=== PATIENT | male | born 1990 | race Caucasian/White ===

== ENCOUNTER 2023-07-11 13:29 | Emergency (ER) | payer OTHER, SELFPAY ==
[2023-07-11 13:45] VITALS: BP 112/79
[2023-07-11 14:07] LABS: Hematocrit 42.1 % (39.0-52.0); Hemoglobin 15.1 g/dL (13.0-18.0); Mean Corp Hgb Conc. 35.9 g/dL (33.0-37.0); Mean Corpuscular Hgb 31.2 pg (27.0-31.0); Mean Platelet Volume 8.3 fL (7.4-10.4); Nucleated Red Blood Cells % 0 % (-); Platelet Count 261 10^3/uL (130-400); Red Blood Cell Count 4.84 10^6/uL (4.70-6.10); Red Cell Dist. Width 11.9 % (11.5-14.5); White Blood Cell Count 4.7 10^3/uL (4.8-10.8)
[2023-07-11 14:20] LABS: ALT (SGPT) 34 U/L (0-50); AST (SGOT) 29 U/L (17-59); Albumin 4.3 g/dl (3.5-5.0); Alkaline Phosphatase 81 U/L (38-126); Blood Urea Nitrogen 14 mg/dl (9-20); Carbon Dioxide 31 mmol/L (22-30); Chloride 102 mmol/L (98-107); Glucose 86 mg/dl (70-99); Potassium 4.1 mmol/L (3.5-5.1); Sodium 137 mmol/L (135-145); Total Bilirubin 0.6 mg/dl (0.2-1.3); Total Protein 7.4 g/dl (6.3-8.2); eGFR > 60.00
[2023-07-11 14:25] LABS: COVID-19 Antigen Negative (Negative)
[2023-07-11 14:54] LABS: Absolute Neutrophils -Man Diff 1.8 10^3/uL (1.4-6.5); Atypical Lymphocytes 5 %; Band Neutrophils 2 % (0-3); Eosinophils 2 % (0-6); Lymphocytes 40 % (20-51); Monocytes 13 % (2-9); Normal RBC Morphology Yes; Platelets Checked YES; Segmented Neutrophils 38 % (42-75); Total Cells Counted 100
--- NOTE | 2023-07-11 16:17 | ED.GENMED ---
History of Present Illness
General
Chief Complaint: Fever
Source: patient
Exam Limitations: none
Time Seen by Provider: 07/11/23 16:10
Travel History
Have you had any contact with someone who has COVID-19?: No
Do you have any symptoms of coronavirus? Fever > 100 degrees, chills, cough, shortness of breath, sore throat, loss of taste or smell, muscle aches, or headache?: Yes
Symptoms:: cough and fever
History of Present Illness
History of Present Illness:
See MDM
Past History
Past History
ED Past Medical History: Other (crohns', prostatitis)
ED Past Surgical History: Other (colonoscopy)
Social History
Tobacco: Non-smoker
Alcohol: None
Drug: None
Personal: Single
Living: alone
Employment: Other
Family History
Family History: Other
Phy Exam
Physical Exam
Physical Exam:
See MDM
Course
Orders/Labs/Results
Orders:
Orders
07/11/23 13:55
COVID-19 Antigen Urgent
Source: Nasal Swab
Complete Blood Count/With Diff Urgent
Comprehensive Metabolic Panel Urgent
Manual Differential Urgent
Influenza A+B Rapid Molecular Urgent
EUNICE Source: Nasal Swab
Specimen Description:
07/11/23 16:17
Dexamethasone Pf [Decadron] 10 mg PO NOW STA
Abnormal Lab Results
07/11/23
13:55
WBC 4.7 L 10^3/uL
(4.8-10.8)
MCH 31.2 H pg
(27.0-31.0)
Segmented Neutrophils 38 L %
(42-75)
Monocytes (Manual) 13 H %
(2-9)
Carbon Dioxide 31 H mmol/L
(22-30)
07/11/23 13:55
07/11/23 13:55
Vital Signs
Initial and Last Documented VS:
Initial Vital Signs
Temp Pulse Resp BP Pulse Ox
98.2 F 89 18 112/79 98
07/11/23 13:45 07/11/23 13:45 07/11/23 13:45 07/11/23 13:45 07/11/23 13:45
Last Documented Vital Signs
Temp Pulse Resp BP Pulse Ox
98.2 F 89 18 112/79 98
07/11/23 13:45 07/11/23 13:45 07/11/23 13:45 07/11/23 13:45 07/11/23 13:45
MDM/Problems Addressed
Differential Diagnosis Includes:
HPI and MDM Narrative:
32-year-old male presenting with fever, cough and congestion. Patient was worried because he had recent umbilical hernia repair. He believes he could have the flu since his girlfriend was recently diagnosed with the flu. Patient also complains of
trouble hearing out of his left ear
Patient is well-appearing nontoxic. Lungs are clear. Umbilical incision clean and intact. No abdominal tenderness. Left TM bulging but pale
Physical exam
General: Well appearing and non-toxic
HEENT: protecting airway
Neck: appears supple
CV: No evidence of cyanosis
Resp: No accessory muscle use. Lungs clear
Abd: Non-distended. Soft and nontender
Extremities: No deformities
Neuro: alert
Psych: Normal affect
Skin: Intact
Problems Addressed including Acute and Chronic Conditions affecting care:
1. Influenza
Acuity: acute
Prognosis: stable
Details: Patient out of the Tamiflu window. Will give dose of Decadron given the congestion. Lungs clear
Updates
Differential Diagnosis (but not limited to): Influenza, postsurgical infection
Testing considered: Chest x-ray but lungs clear
Drug therapy (if applicable): OTC meds, please see d/c instruction regarding Rx drugs
Amount and/or Complexity of Data Reviewed
Clinical info obtained from: Patient
External data reviewed: N/A
Labs I independently reviewed (but not limited to): Influenza positive
Radiology: N/A
Pulse Ox: not hypoxic
EKG independently reviewed: N/A
Accounting Specialist: N/A
Critical Care: N/A
Risk of Complication:
Social Determinants of health: Good social support
Discussed with other providers: N/A
Escalation of Care includes Admit/Obs: After being observed in the Emergency Department, pt stable for discharge.
Occasional wrong word or 'sound a like' substitutions may have occurred due to the inherent limitations of voice recognition software. Read the chart carefully and recognize, using context, where substitutions have occurred.
*Critical Care Note
Total Time (30-74mins, 75-104mins- exclusive of procedures): Not Applicable
ED Attending Note
-
Portions of this chart may have been created with voice recognition software.� Occasional wrong word or��sound alike� substitutions may have occurred due to the inherent limitations of voice recognition software.
Discharge Plan
Departure
Patient Disposition: Home (Routine Discharge)
Date of Disposition: 07/11/23
Time of Disposition: 16:25
Patient with high blood pressure during this ER visit?: No
Discharge Problem:
Influenza A
Instructions: Flu, Adult ED
Prescriptions:
No Action
oxycodone 5 mg tablet
5 - 10 mg PO Q4HPRN PRN (Reason: moderate to severe pain) Qty: 20 0RF
Activity Restrictions/Additional Instructions:
Please return for any worsening symptoms.
You may return at any time if you have further concerns.
Please follow up with your doctor at the first available appointment, preferably this week.
Thank you for choosing [facility].
[2023-07-11] MEDS: DECADRON 10 MG PO (16:26)
[2023-07-11 16:42] VITALS: BP 124/76
== END 2023-07-11 16:40 | disposition home or self-care (01) ==
LOC: EMR 13:29
PROVIDERS: Emergency Medicine; EMERGENCY PHYSICIAN Student in an Organized Health Care Education/Training Program
DX: J10.1 Influenza due to other identified influenza virus with other respiratory manifestations (principal); K50.90 Crohn's disease, unspecified, without complications
CPT/HCPCS: 99283; 80053; 85025; 87502; 87811

== ENCOUNTER 2023-08-06 21:45 | Emergency (ER) | payer OTHER, SELFPAY ==
[2023-08-06 21:49] VITALS: BP 123/89
[2023-08-06 22:16] LABS: % Basophils 0.3 % (0-2); % Immature Granulocytes 0.6 % (0-0.5); % Lymphocytes 41.8 % (20.5-51.1); % Monocytes 10.2 % (1.7-9.3); % Neutrophils 44.1 % (42.2-75.2); Absolute Eosinophils 0.2 10^3/uL (0-0.7); Absolute Monocytes 0.7 10^3/uL (0.1-0.6); Absolute Neutrophils 3.1 10^3/uL (1.4-6.5); Hematocrit 44.5 % (39.0-52.0); Hemoglobin 15.8 g/dL (13.0-18.0); Mean Corp Hgb Conc. 35.5 g/dL (33.0-37.0); Mean Corpuscular Hgb 30.9 pg (27.0-31.0); Mean Corpuscular Volume 86.9 fL (80.0-94.0); Mean Platelet Volume 8.2 fL (7.4-10.4); Nucleated Red Blood Cells % 0 % (-); Platelet Count 273 10^3/uL (130-400); Red Blood Cell Count 5.12 10^6/uL (4.70-6.10); Red Cell Dist. Width 12.3 % (11.5-14.5); White Blood Cell Count 7.1 10^3/uL (4.8-10.8)
[2023-08-06 22:21] LABS: Erythrocyte Sed Rate 2 mm/hour (0-20)
[2023-08-06 22:36] LABS: ALT (SGPT) 26 U/L (0-50); AST (SGOT) 24 U/L (17-59); Albumin 3.9 g/dl (3.5-5.0); Alkaline Phosphatase 79 U/L (38-126); Blood Urea Nitrogen 19 mg/dl (9-20); Calcium 9.6 mg/dl (8.4-10.2); Carbon Dioxide 33 mmol/L (22-30); Chloride 99 mmol/L (98-107); Glucose 96 mg/dl (70-99); Sodium 138 mmol/L (135-145); Total Bilirubin 0.7 mg/dl (0.2-1.3); eGFR > 60.00
[2023-08-06 22:37] LABS: Total Protein 7.1 g/dl (6.3-8.2)
[2023-08-06 22:41] LABS: Troponin I < 0.012 ng/ml
[2023-08-06 23:57] VITALS: BP 117/82
--- NOTE | 2023-08-07 01:07 | ED.GENMED ---
History of Present Illness
General
Chief Complaint: Musculo-Skeletal Complaint
Source: patient
Exam Limitations: none
Time Seen by Provider: 08/07/23 00:29
Travel History
Have you had any contact with someone who has COVID-19?: No
Do you have any symptoms of coronavirus? Fever > 100 degrees, chills, cough, shortness of breath, sore throat, loss of taste or smell, muscle aches, or headache?: No
History of Present Illness
History of Present Illness:
This is a 32 year old male that comes in with c/o difficulty walking. States that this started 3 weeks ago as his legs felt shaky. States that his left foot seemed to be ice cold, burning and numb. Then he felt like his thighs felt like Jell-O. Then
in 3-4 days it was in both feet. States that he went to see the PCP about 5 days ago and he did blood work. States that his iron level was high. States that he was told to get Genetic testing and see the Electro Mechanical Solar Technician which he did make appointment
for. States that he has chest pain and left arm pain. States that he felt SOB and nauseated. States that he was dizzy going up the steps. States that for the past week he has been in bed. Denies any fever, chills, abd pain, vomiting, headache,
urinary burning
Past History
Past History
ED Past Medical History: Hypercholesterolemia and Other (crohns', prostatitis)
ED Past Surgical History: Other (colonoscopy, Hernia, Sinus Reconstruction, )
Social History
Tobacco: Non-smoker
Alcohol: None
Drug: None
Personal: Single
Living: alone
Employment: Other
Family History
Family History: Other
Review of Systems
Review of Systems
All Other Systems: ROS reviewed and negative except as documented in HPI and ROS
Constitutional: Reports no symptoms; Denies fever or chills
EENT: Reports no symptoms
Respiratory: Reports trouble breathing; Denies cough
Cardiac: Reports chest pain
ABD/GI: Reports nausea and diarrhea (on and off due to his Crohns); Denies abdominal pain or vomiting
: Reports no symptoms; Denies dysuria, frequency or urgency
Musculoskeletal: Reports other (Bilateral leg pain, Difficulty walking, Burning and feet feel numb)
Skin: Reports no symptoms
Neurological: Reports dizzy; Denies headache
Psychiatric: Reports no symptoms
Phy Exam
General Physical Exam
General Presentation: well appearing and no apparent distress
General age: appears stated age
General Skin: warm and dry
General Habitus: normal
General Hydration: appears well hydrated
ENT Exam
ENT Exam: TM's normal, pharynx normal and neck supple
Eye Exam
Eye Exam: EOMI
Cardiovascular Exam
Cardiovascular Exam: regular rate/rhythm, no edema, no murmur and normal peripheral pulses
Pulmonary Exam
Pulmonary Exam: lungs clear, no respiratory distress, no rales, chest non tender, no crackles, no rhonchi, no wheezing and no cough
Gastrointestinal Exam
Gastrointestinal Exam: normal bowel sounds, non tender, soft, no organomegaly, no pulsatile mass and non distended
Musculoskeletal Exam
Musculoskeletal Exam: full ROM, no edema and other (Peripheral pulses palpable. Feet cool to tough. Slight Decreased sensation on the medial aspect of the left distal foot)
Skin Exam
Skin Exam: normal color, warm/dry, no rash and no petechia
Psychiatric Exam
Psychiatric Exam: normal mood/affect
Course
Orders/Labs/Results
Orders:
Orders
08/06/23 21:55
Electrocardiogram (*1) Urgent
Reason for Study: Chest Pain
EKG- Treatment ONCE
08/06/23 22:10
C-Reactive Protein Urgent
Complete Blood Count/With Diff Urgent
Comprehensive Metabolic Panel Urgent
ESR [Erythrocyte Sed Rate] Urgent
Troponin I Urgent
08/07/23 01:06
CT Head W/o Iv Contrast Urgent
Comment:
Reason For Exam: Difficulty walking, Dizziness
US Legs, Bilateral [US Periph Venous LOWER Ext Jose] Urgent
Comment:
Reason For Exam: Difficulty walking Burning in feet, Numbness,
08/07/23 01:10
Electrocardiogram (*1) Urgent
Reason for Study: Chest Pain
EKG- Treatment ONCE
Troponin I Urgent
CR Chest - 2 Views Urgent
Comment:
Reason For Exam: chest pain, SOB
Abnormal Lab Results
08/06/23
22:10
Absolute Monos (auto) 0.7 H 10^3/uL
(0.1-0.6)
Immature Gran % 0.6 H %
(0-0.5)
Monocytes % 10.2 H %
(1.7-9.3)
Carbon Dioxide 33 H mmol/L
(22-30)
08/06/23 22:10
08/06/23 22:10
Carbon dioxide slightly elevated. Sed rate normal at 2, Troponin <0.012, CRP normal at 7.10
Vital Signs
Initial and Last Documented VS:
Initial Vital Signs
Temp Pulse Resp BP Pulse Ox
97.9 F 74 18 123/89 97
08/06/23 21:49 08/06/23 21:49 08/06/23 21:49 08/06/23 21:49 08/06/23 21:49
Last Documented Vital Signs
Temp Pulse Resp BP Pulse Ox
97.9 F 83 18 117/82 98
08/06/23 21:49 08/07/23 00:45 08/07/23 00:45 08/06/23 23:57 08/07/23 00:45
Twister Hand consulted with Physician
Twister Hand consulted with physician?: Yes
Name of Physician Consulted: DR. Fajardo
MDM/Problems Addressed
Differential Diagnosis Includes:
Neuropathy, Guillain barre syndrome,
MDM/Problems Addressed:
This is a 32 year old male that comes in with multiple complaints. States that he has had pain in the legs for the past 3 weeks. States that he feel are like his feet are ice cold and that there is burning and numbness. Patient states that he has
been in bed for the past week. States that he had chest discomfort, SOB going up the steps. nausea, and dizziness.
Will check labs. CT head, US legs.
Back into see patient. Explained that his blood work is normal along with his ECG. CT of the head and his Bilateral leg ultrasound. Patient to follow up with the family doctor and other specialist as planned. Patient will be given the name of a
Vascular surgeon for further evaluation. Patient to return with any concerns
Chronic conditions affecting care:
NA
Acute Exacerbation and/or Progression of Chronic Illness:
NA
*Radiology
Radiology exam reviewed: radiology read reviewed (CT head night hawk- No acute hemorrhage, herniation or hydrocephalus. NO calvarial fractures. The visualized paranasal sinuses and mastoid air cells are clear. ) and other (Verbal report Ultrasound
negative. )
*Pulse Oximetry
Patient hypoxic: no
*EKG
Interpreted by ED Provider?: Yes
Heart Rate: 63
Rate: normal
Rhythm: sinus
[place]: normal axis
Interval: normal interval
QRS Pattern: normal QRS
Ischemia: no ischemia
*Records Management Engineer Interpretation
Rate: normal
Heart Rate: 82
Rhythm: sinus
*Critical Care Note
Total Time (30-74mins, 75-104mins- exclusive of procedures): Not Applicable
ED Attending Note
-
Portions of this chart may have been created with voice recognition software.� Occasional wrong word or��sound alike� substitutions may have occurred due to the inherent limitations of voice recognition software.
Discharge Plan
Departure
Patient Disposition: Home (Routine Discharge)
Date of Disposition: 08/07/23
Time of Disposition: 02:47
Patient with high blood pressure during this ER visit?: No
Condition: Good
Covid-19: Not Applicable
Discharge Problem:
Bilateral foot pain, Dizziness
Instructions: Muscle and Bone Pain (DC), Dizziness, Adult ED
Prescriptions:
No Action
oxycodone 5 mg tablet
5 - 10 mg PO Q4HPRN PRN (Reason: moderate to severe pain) Qty: 20 0RF
Referrals:
Amari Menjivar MD [Active] - Call in 1-3 days for appt
Carly Pelaez PA [Family Provider] - Call in 1-3 days for appt
Activity Restrictions/Additional Instructions:
As discussed, your blood work is normal along with your Inflammatory markers. Your CT of the head is normal along with the Ultrasound. Please follow up with the family doctor for recheck and also the specialist that you have scheduled appointment
with. You have also been given the name of a Vascular surgeon for evaluation if your numbness and pain continues. You may use Tylenol 1000mg every 6 hours for pain. IF YOU HAVE ANY OTHER CONCERNS PLEASE RETURN TO THE EMERGENCY ROOM.
Interventions
Interventions:
*Risk Screen - Suicide Last Done: 08/06/23 21:49
*General Assessment Last Done: 08/06/23 21:49
*Neglect/Abuse Screening Last Done: 08/06/23 21:49
[2023-08-07 03:06] VITALS: BP 123/63
== END 2023-08-07 03:13 | disposition home or self-care (01) ==
LOC: EMR 21:45
PROVIDERS: EMERGENCY PHYSICIAN Emergency Medicine; FAMILY PHYSICIAN Family Medicine
DX: M79.672 Pain in left foot (principal); M79.671 Pain in right foot; R42 Dizziness and giddiness; E78.00 Pure hypercholesterolemia, unspecified; K50.90 Crohn's disease, unspecified, without complications
CPT/HCPCS: 99284; 70450; 71046; 80053; 84484; 85025; 85652; 86140; 93005; 93970

== ENCOUNTER 2024-01-18 08:11 | Emergency (ER) | payer SELFPAY ==
[2024-01-18 08:14] VITALS: BP 121/90
--- NOTE | 2024-01-18 08:17 | ED.GENMED ---
History of Present Illness
General
Chief Complaint: Abdominal Pain
Time Seen by Provider: 01/18/24 08:17
History of Present Illness
History of Present Illness:
HPI: Patient presents with abdominal pain associated with diarrhea and has a history of Crohn's disease. He reports chronic pain but over the last few weeks he has been having increasing pain to the point that today he was breaking out into a sweat
because of the pain. He had been on steroids for about 12 weeks but this did not help. He also reports a history of having issues with his prostate and was frustrated because urology defers management to GI and vice versa. Symptoms are associated
with diarrhea. He also reports pain in the right low back region.
EXAM:
GENERAL: Well appearing in no distress
HEENT: Moist oral mucosa
CARDIOVASCULAR: No murmurs, normal heart rate, regular rhythm, No chest wall tenderness
PULMONARY: No respiratory distress, breath sounds are clear and equal
ABDOMEN: Soft with no peritoneal signs, mild lower abdominal tenderness
NEUROLOGIC: Excellent strength all extremities, no coordination deficits
PSYCHIATRIC: Appropriate mental status, normal insight and judgement
EXTREMITIES: Nontender, no edema, moves all extremities equally
SKIN: No rash, no lesions
TIME OF INITIAL ENCOUNTER: 8:20 AM
NUMBER AND COMPLEXITY OF PROBLEMS ADDRESSED AT THE ENCOUNTER
� Chronic conditions affecting care: Crohn's, has had an umbilical hernia repair
� Acute Exacerbation and/or Progression of Chronic Illness: This is an acute exacerbation of chronic
� Differential Diagnosis includes: Exacerbation of Crohn's, bowel obstruction less likely given the diarrhea,
AMOUNT AND/OR COMPLEXITY OF DATA TO BE REVIEWED AND ANALYZED
� I performed an independent evaluation of and my interpretation is:
EKG:
CT: CT imaging shows diffuse bladder wall thickening however urinalysis unremarkable; radiologist noted normal TI and appendix
X-rays:
Laboratory Studies: White count 5.5, hemoglobin 15.5, chemistries unremarkable, CRP normal, lipase normal, urinalysis negative
Other:
� Review of other/old records: I reviewed records. The patient had umbilical hernia repair with Dr. Medeiros in June 2023
� Clinical information was obtained by an independent historian: None needed
� Prescriptions/Medications Considered but not given:
� Further testing considered but not performed:
RISK OF COMPLICATIONS AND/OR MORBIDITY OR MORTALITY OF PATIENT MANAGEMENT
� Social determinants of health affecting care: Lives at home
� Discussion with other providers:
� Escalation of care including admission/observation vs risk of discharge considered: Given patient's history of Crohn's, will obtain CT imaging with oral and IV contrast. He appears fairly comfortable currently. Will give a
dose of Toradol. He was nauseated earlier but currently is not. On reassessment at 12:30 PM, unclear etiology of patient's symptoms but he appears comfortable on reassessment. He has been to GI several times and states that he lost his job
because of going to GI appointments. Unfortunately, there is no clear indication to keep him in the hospital or any other testing at this time.
Past History
Past History
ED Past Medical History: Hypercholesterolemia and Other (crohns', prostatitis)
ED Past Surgical History: Other (colonoscopy, Hernia, Sinus Reconstruction, )
Social History
Tobacco: Non-smoker
Alcohol: None
Drug: None
Personal: Single
Living: alone
Employment: Other
Family History
Family History: Other
Phy Exam
Physical Exam
Physical Exam:
See HPI
Course
Orders/Labs/Results
Orders:
Orders
01/18/24 08:19
0.9% Sodium Chloride 1000 ml [Nss] 1,000 ml IV BOLUS
01/18/24 08:28
CT Abd/pel W Iv And Oral Contr Urgent
Comment:
Reason For Exam: worsening lower pain; h/o Crohns
Iohexol [Omnipaque] See Protocol PO NOW STA
Ketorolac [Toradol] 15 mg IV NOW STA
01/18/24 08:48
CRP [C-Reactive Protein] Urgent
Complete Blood Count/With Diff Urgent
Comprehensive Metabolic Panel Urgent
Lipase Urgent
01/18/24 08:56
Urinalysis Reflex To Culture Urgent
Date Specimen was Collected: 01/18/24
Time Specimen was Collected: 08:53
Abnormal Lab Results
01/18/24
08:48
MCH 31.8 H pg
(27.0-31.0)
Glucose 122 H mg/dl
(70-99)
01/18/24 08:48
01/18/24 08:48
Vital Signs
Initial and Last Documented VS:
Initial Vital Signs
Temp Pulse Resp BP Pulse Ox
98.1 F 79 18 121/90 97
01/18/24 08:14 01/18/24 08:14 01/18/24 08:14 01/18/24 08:14 01/18/24 08:14
Last Documented Vital Signs
Temp Pulse Resp BP Pulse Ox
98.4 F 75 16 124/83 99
01/18/24 11:00 01/18/24 11:00 01/18/24 11:00 01/18/24 11:00 01/18/24 11:00
*Critical Care Note
Total Time (30-74mins, 75-104mins- exclusive of procedures): Not Applicable
ED Attending Note
-
Portions of this chart may have been created with voice recognition software.� Occasional wrong word or��sound alike� substitutions may have occurred due to the inherent limitations of voice recognition software.
Discharge Plan
Departure
Patient Disposition: Home (Routine Discharge)
Date of Disposition: 01/18/24
Time of Disposition: 12:34
Patient with high blood pressure during this ER visit?: Yes
Discharge Problem:
Abdominal pain
Instructions: Abdominal Pain
Prescriptions:
No Action
oxycodone 5 mg tablet
5 - 10 mg PO Q4HPRN PRN (Reason: moderate to severe pain) Qty: 20 0RF
Referrals:
Carly Pelaez PA [Family Provider] -
Activity Restrictions/Additional Instructions:
The cause of your pain is unclear. Your white blood cell count is normal. Your hemoglobin level is normal. Kidney function is normal. Liver function tests are normal. Inflammatory marker called C-reactive protein is normal. Pancreas test is
normal. The CAT scan today shows urinalysis shows a mildly enlarged prostate�you could follow-up with your urologist for further evaluation. Diverticulosis was also seen but there was no sign of diverticulitis (no need for antibiotics). The
radiologist also noted some thickening of the bladder wall which can be seen with infection however there is no sign of infection on the urinalysis. More likely the thickening of the bladder wall is just due to underdistention (you did not have a
full bladder at the time of CT). Consider intermittent use of [id number] ibuprofen for pain.
Interventions
Interventions:
*Risk Screen - Suicide Last Done: 01/18/24 08:15
*General Assessment Last Done: 01/18/24 08:15
*Neglect/Abuse Screening Last Done: 01/18/24 08:15
ED- Fall Risk Assessment Last Done: 01/18/24 08:50
*ED COVID-19 Vaccine History Last Done: 01/18/24 08:15
HI-Clbjww-Xydaucfdly Assessment Last Done: 01/18/24 08:49
Discharge Date and Time
Print Language: WALLISIAN
[2024-01-18] MEDS: NSS 1000 IV (08:46)
[2024-01-18] MEDS: OMNIPAQUE 50 ML PO (08:46)
[2024-01-18] MEDS: TORADOL 15 MG IV (08:47)
[2024-01-18 08:49] VITALS: BMI 29.4
[2024-01-18 08:50] VITALS: BP 127/91
[2024-01-18 09:04] LABS: % Basophils 0.4 % (0-2); % Eosinophils 1.6 % (0-6); % Immature Granulocytes 0.4 % (0-0.5); % Lymphocytes 35.7 % (20.5-51.1); % Neutrophils 55.9 % (42.2-75.2); Absolute Eosinophils 0.1 10^3/uL (0-0.7); Absolute Monocytes 0.3 10^3/uL (0.1-0.6); Absolute Neutrophils 3.1 10^3/uL (1.4-6.5); Hematocrit 43.1 % (39.0-52.0); Hemoglobin 15.5 g/dL (13.0-18.0); Mean Corpuscular Hgb 31.8 pg (27.0-31.0); Mean Corpuscular Volume 88.3 fL (80.0-94.0); Mean Platelet Volume 9.2 fL (7.4-10.4); Nucleated Red Blood Cells % 0 % (-); Platelet Count 296 10^3/uL (130-400); Red Blood Cell Count 4.88 10^6/uL (4.70-6.10); Red Cell Dist. Width 12.1 % (11.5-14.5); White Blood Cell Count 5.5 10^3/uL (4.8-10.8)
[2024-01-18 09:14] LABS: Urine Albumin Negative (Neg - Trace); Urine Bilirubin Negative (Negative); Urine Character Clear (Clear); Urine Color Yellow; Urine Glucose Negative (Negative); Urine Ketone Negative (Negative); Urine Leukocyte Negative (Negative); Urine Nitrite Negative (Negative); Urine Occult Blood Negative (Negative); Urine Urobilinogen Negative (Neg - 1+)
[2024-01-18 09:21] LABS: ALT (SGPT) 27 U/L (0-50); AST (SGOT) 22 U/L (17-59); Albumin 4.3 g/dl (3.5-5.0); Alkaline Phosphatase 79 U/L (38-126); Blood Urea Nitrogen 17 mg/dl (9-20); Calcium 9.5 mg/dl (8.4-10.2); Carbon Dioxide 28 mmol/L (22-30); Chloride 104 mmol/L (98-107); Estimated Creatinine Clearance > 125 ml/min; Glucose 122 mg/dl (70-99); Lipase 83 U/L (23-300); Sodium 139 mmol/L (135-145); Total Bilirubin 0.5 mg/dl (0.2-1.3); Total Protein 6.8 g/dl (6.3-8.2); eGFR > 60.00
[2024-01-18 09:26] LABS: C-Reactive Protein < 5.00 mg/L (0.0-10.00)
[2024-01-18 11:00] VITALS: BP 124/83
[2024-01-18 12:00] VITALS: BP 122/77
== END 2024-01-18 12:57 | disposition home or self-care (01) ==
LOC: EMR 08:11
PROVIDERS: EMERGENCY PHYSICIAN Emergency Medicine; FAMILY PHYSICIAN Family Medicine
DX: R10.9 Unspecified abdominal pain (principal); K50.90 Crohn's disease, unspecified, without complications; E78.00 Pure hypercholesterolemia, unspecified; G89.29 Other chronic pain
CPT/HCPCS: 99284; 96374; 96361; 74177; 80053; 81003; 83690; 85025; 86140; Q9967

== ENCOUNTER 2024-04-07 08:22 | Emergency (ER) | payer SELFPAY ==
[2024-04-07 08:26] VITALS: BP 126/84
[2024-04-07] MEDS: DECADRON 10 MG PO (10:04)
[2024-04-07] MEDS: TORADOL 30 MG IM (10:05)
[2024-04-07] MEDS: AUGMENTIN 875 MG/125 MG 1 TABLET PO (10:05)
--- NOTE | 2024-04-07 10:10 | ED.GENMED ---
History of Present Illness
General
Chief Complaint: Throat Problem
Source: patient
Exam Limitations: none
Time Seen by Provider: 04/07/24 09:10
Nursing documentation reviewed up to this point in time: agreed with
History of Present Illness
History of Present Illness:
33-year-old male past medical history of Crohn's disease presenting to the emergency department today with concerns of throat discomfort with some radiation to his right ear and also dental issues. Claims that he may have had a fever earlier today.
Denies any chest pain shortness of breath has had some intermittent abdominal pain for the past few months as well. Denies any diarrhea constipation or vomiting. He has no outpatient doctors at this point does not see a dentist.
Past History
Past History
ED Past Medical History: Hypercholesterolemia and Other (crohns', prostatitis)
ED Past Surgical History: Other (colonoscopy, Hernia, Sinus Reconstruction, )
Social History
Tobacco: Non-smoker
Alcohol: None
Drug: None
Personal: Single
Living: alone
Employment: Other
Family History
Family History: Other
Review of Systems
Review of Systems
Allergies reviewed?: Yes
All Other Systems: ROS reviewed and negative except as documented in HPI and ROS
Phy Exam
Physical Exam
Physical Exam:
GENERAL: Alert , in no apparent distress
EYE: pupils equal and reactive
NECK: Supple, no significant adenopathy.
ENT: Swelling to the tonsils bilaterally with some small mount of exudate uvula midline grossly patent airway dental fractures bilaterally but no obvious surrounding tissue redness inflammation. o/p clr, mmm.
CARDIAC: Regular rate and rhythm .
LUNGS: Clear breath sounds bilaterally, no acute respiratory distress, no wheezes/rales/rhonchi
ABDOMEN: Soft, without focal tenderness, no r/g, no cvat
NEUROLOGICAL: Alert and oriented, no focal neuro deficits
SKIN: Warm and dry, skin intact.
MUSCULOSKELETAL: No edema, well perfused.
PSYCH: Normal and appropriate interaction.
Course
Orders/Labs/Results
Orders:
Orders
04/07/24 09:21
Amoxicillin 875 mg/Clav 125 mg [Augmentin 875 mg/125 mg] 1 tablet PO NOW STA
Dexamethasone [Decadron] 10 mg PO NOW STA
Ketorolac [Toradol] 30 mg IM NOW STA
04/07/24 10:20
Vital Signs- Treatment ONCE
Frequency: Once
Vital Signs
Initial and Last Documented VS:
Initial Vital Signs
Temp Pulse Resp BP Pulse Ox
99.2 F 118 18 126/84 95
04/07/24 08:26 04/07/24 08:26 04/07/24 08:26 04/07/24 08:26 04/07/24 08:26
Last Documented Vital Signs
Temp Pulse Resp BP Pulse Ox
99.0 F 95 18 105/65 95
04/07/24 10:48 04/07/24 10:48 04/07/24 08:26 04/07/24 10:48 04/07/24 10:48
MDM/Problems Addressed
MDM/Problems Addressed:
33-year-old male presenting to the emergency department today with concerns of throat mouth discomfort radiation to the right ear. Worsening over the past few days. Also has had intermittent abdominal pain for multiple months does not history of
Crohn's disease and has no outpatient follow-up. On arrival here he is tachycardic temperature of 99.2 otherwise vital signs are normal. Does have exudative tonsils bilaterally uvula midline. Patient was given medication with some improvement of
vital signs and improvement of heart rate. Stable throughout ER stay given information for close outpatient follow-up and otherwise written for outpatient medications.
*Critical Care Note
Total Time (30-74mins, 75-104mins- exclusive of procedures): Not Applicable
ED Attending Note
-
Portions of this chart may have been created with voice recognition software.� Occasional wrong word or��sound alike� substitutions may have occurred due to the inherent limitations of voice recognition software.
Discharge Plan
Departure
Patient Disposition: Home (Routine Discharge)
Date of Disposition: 04/07/24
Time of Disposition: 11:13
Patient with high blood pressure during this ER visit?: No
Condition: Good
Covid-19: Not Applicable
Discharge Problem:
Pharyngitis
Instructions: Strep Throat (DC)
Prescriptions:
New
amoxicillin-pot clavulanate 875-125 mg tablet
1 tab PO BID 7 Days Qty: 14 0RF
prednisone 50 mg tablet
50 mg PO DAILY 4 Days Qty: 4 0RF
No Action
oxycodone 5 mg tablet
5 - 10 mg PO Q4HPRN PRN (Reason: moderate to severe pain) Qty: 20 0RF
Referrals:
Sanchez Gentile MD [Active] - Follow up in 5-7 days
Sachin Seo MD [Active] -
Vega Monsalve MD [Active] -
NONE,* [Family Provider] -
Activity Restrictions/Additional Instructions:
You came to the emergency department today with concerns of throat discomfort. You are started on antibiotics and also given steroids. Please follow closely with the clinic for ongoing management. Return to the emergency department for any
worsening, new or concerning symptoms.
Interventions
Interventions:
*Risk Screen - Suicide Last Done: 04/07/24 08:26
*General Assessment Last Done: 04/07/24 08:26
*Neglect/Abuse Screening Last Done: 04/07/24 08:26
*ED COVID-19 Vaccine History Last Done: 04/07/24 08:26
Discharge Date and Time
Print Language: TURKISH
[2024-04-07 10:48] VITALS: BP 105/65
== END 2024-04-07 12:34 | disposition home or self-care (01) ==
LOC: EMR 08:22
PROVIDERS: EMERGENCY PHYSICIAN Emergency Medicine
DX: J02.9 Acute pharyngitis, unspecified (principal); E78.00 Pure hypercholesterolemia, unspecified; K50.90 Crohn's disease, unspecified, without complications
CPT/HCPCS: 99282; 96372

== ENCOUNTER 2024-05-06 18:38 | Emergency (ER) | payer SELFPAY ==
[2024-05-06 18:39] VITALS: BP 131/98
--- NOTE | 2024-05-06 19:13 | ED.GENMED ---
History of Present Illness
General
Chief Complaint: Abdominal Pain
Source: patient
Exam Limitations: none
Time Seen by Provider: 05/06/24 18:53
History of Present Illness
History of Present Illness:
This is a 33 year old male that comes in with c/o lower abd pain that goes down into his testicles. States that for a few weeks this has been going on and feels like it is getting worse. States that he is gaining weight and that he lost his job and
has no insurance. States that he get heart burn, feels nauseated and has had diarrhea. States that he also has a headache with slight lightheadedness. Denies any fever, chills, chest pain, SOB, vomiting, urinary burning.
Past History
Past History
ED Past Medical History: Hypercholesterolemia and Other (Crohn's, prostatitis, Ulcers)
ED Past Surgical History: Other (colonoscopy, Hernia, Sinus Reconstruction, )
Social History
Tobacco: Non-smoker
Alcohol: None
Drug: None
Personal: Single
Living: alone
Employment: Not employed
Family History
Family History: Other
Review of Systems
Review of Systems
All Other Systems: ROS reviewed and negative except as documented in HPI and ROS
Constitutional: Reports no symptoms; Denies fever or chills
EENT: Reports no symptoms
Respiratory: Reports no symptoms; Denies cough or trouble breathing
Cardiac: Reports no symptoms; Denies chest pain
ABD/GI: Reports abdominal pain (Lower abd pain), nausea and diarrhea; Denies vomiting
: Reports no symptoms; Denies dysuria, frequency or urgency
Musculoskeletal: Reports no symptoms
Skin: Reports no symptoms
Neurological: Reports dizzy and headache
Psychiatric: Reports no symptoms
Phy Exam
General Physical Exam
General Presentation: no apparent distress
General age: appears stated age
General Skin: warm and dry
General Habitus: normal
General Mental: alert
General Hydration: appears well hydrated
ENT Exam
ENT Exam: TM's normal, pharynx normal and neck supple
Eye Exam
Eye Exam: EOMI
Cardiovascular Exam
Cardiovascular Exam: regular rate/rhythm, no edema, no murmur and normal peripheral pulses
Pulmonary Exam
Pulmonary Exam: lungs clear, no respiratory distress, no rales, chest non tender, no crackles, no rhonchi, no wheezing and no cough
Gastrointestinal Exam
Gastrointestinal Exam: soft, no organomegaly, no pulsatile mass, non distended, tender (Lower abd tenderness with palpation) and other (Hypoactive bowel sounds)
Musculoskeletal Exam
Musculoskeletal Exam: full ROM and no edema
Skin Exam
Skin Exam: normal color, warm/dry, no rash and no petechia
Psychiatric Exam
Psychiatric Exam: normal mood/affect
Course
Orders/Labs/Results
Orders:
Orders
05/06/24 19:12
CT Abd/pelvis W Iv Cont Urgent
Comment:
Reason For Exam: Lower abd pain
0.9% Sodium Chloride 1000 ml [Nss] 1,000 ml IV BOLUS
Ketorolac [Toradol] 30 mg IV NOW STA
US Scrotum Urgent
Comment:
Reason For Exam: Testicular discomfort
05/06/24 19:15
Pantoprazole [Protonix IV] 40 mg IV NOW STA
05/06/24 19:26
Complete Blood Count/With Diff Urgent
Comprehensive Metabolic Panel Urgent
Urinalysis Reflex To Culture Urgent
Date Specimen was Collected: 05/06/24
Time Specimen was Collected: 19:21
Abnormal Lab Results
05/06/24
19:26
MCH 31.7 H pg
(27.0-31.0)
Absolute Monos (auto) 0.7 H 10^3/uL
(0.1-0.6)
Monocytes % 9.7 H %
(1.7-9.3)
05/06/24 19:26
05/06/24 19:26
Labs unremarkable. Urine negative for infection.
Vital Signs
Initial and Last Documented VS:
Initial Vital Signs
Temp Pulse Resp BP Pulse Ox
98.3 F 93 16 131/98 98
05/06/24 18:39 05/06/24 18:39 05/06/24 18:39 05/06/24 18:39 05/06/24 18:39
Last Documented Vital Signs
Temp Pulse Resp BP Pulse Ox
98.3 F 65 18 118/83 100
05/06/24 18:39 05/06/24 20:50 05/06/24 20:50 05/06/24 20:50 05/06/24 20:50
MDM/Problems Addressed
Differential Diagnosis Includes:
Cystitis, Crohn's flare, Prostatitis
MDM/Problems Addressed:
This is a 33 year old male that comes in with c/o lower abd discomfort that goes down into his groin. States that this has been going on for a couple of weeks and he feels that it is getting worse.
Will check labs. CT scan and US scrotum. IV fluids, pain medication and Protonix for his GERD.
Back into see patient. Explained that his blood work is normal along with the CT scan. US is normal. Encouraged patient to stay way form Milk products as this causes the diarrhea to increase. Patient to increase his water intack to 8-8oz glasses
daily. Will have patient follow up in the clinic for further evaluation.
Chronic conditions affecting care:
Crohn's flare, Prostatitis
Acute Exacerbation and/or Progression of Chronic Illness:
NA
*Radiology
Radiology exam reviewed: radiology read reviewed (CT-No acute findings in the abdomen or pelvis, Specifically no evidence of acute appendicitis. The prostate appears mildly enlarged, unchanged from prior. US scrotum-No suspicious testicular
lesions or evidence of testicular torsion. Left-sided varicocele. )
*Pulse Oximetry
Patient hypoxic: no
*EKG
Interpreted by ED Provider?: NA
Rate: EKG- N/A
*Sliver Former Interpretation
Rate: Sliver Former- N/A
*Critical Care Note
Total Time (30-74mins, 75-104mins- exclusive of procedures): Not Applicable
ED Attending Note
-
Portions of this chart may have been created with voice recognition software.� Occasional wrong word or��sound alike� substitutions may have occurred due to the inherent limitations of voice recognition software.
Discharge Plan
Departure
Patient Disposition: Home (Routine Discharge)
Date of Disposition: 05/06/24
Time of Disposition: 22:02
Patient with high blood pressure during this ER visit?: No
Condition: Good
Covid-19: Not Applicable
Discharge Problem:
Abdominal pain, lower
Instructions: Abdominal Pain
Prescriptions:
No Action
oxycodone 5 mg tablet
5 - 10 mg PO Q4HPRN PRN (Reason: moderate to severe pain) Qty: 20 0RF
amoxicillin-pot clavulanate 875-125 mg tablet
1 tab PO BID 7 Days Qty: 14 0RF
prednisone 50 mg tablet
50 mg PO DAILY 4 Days Qty: 4 0RF
Referrals:
[facility] - Call in 1-3 days for appt
NONE,* [Family Provider] -
Activity Restrictions/Additional Instructions:
As discussed, your blood work is normal along with the CT scan and your Ultrasound. Please stay away form milk and milk products as this will keep the diarrhea going as this is hard to digest. Chicken, rice and potatoes are easily digested. Please
follow up in the Clinic for further evaluation. IF YOU HAVE ANY OTHER CONCERNS PLEASE RETURN TO THE EMERGENCY ROOM.
Interventions
Interventions:
*Risk Screen - Suicide Last Done: 05/06/24 18:39
*General Assessment Last Done: 05/06/24 18:39
*Neglect/Abuse Screening Last Done: 05/06/24 18:39
ED- Fall Risk Assessment Last Done: 05/06/24 20:51
*ED COVID-19 Vaccine History Last Done: 05/06/24 19:18
UI-Syaomi-Ziseqxxeoa Assessment Last Done: 05/06/24 20:50
Discharge Date and Time
Print Language: CHADIAN
[2024-05-06 19:17] VITALS: BMI 32.5
[2024-05-06] MEDS: NSS 1000 IV (19:23)
[2024-05-06] MEDS: TORADOL 30 MG IV (19:23)
[2024-05-06] MEDS: PROTONIX IV 40 MG IV (19:23)
[2024-05-06 19:33] LABS: Urine Albumin Negative (Neg - Trace); Urine Bilirubin Negative (Negative); Urine Character Clear (Clear); Urine Color Yellow; Urine Glucose Negative (Negative); Urine Ketone Negative (Negative); Urine Leukocyte Negative (Negative); Urine Nitrite Negative (Negative); Urine Occult Blood Negative (Negative); Urine Specific Gravity 1.025 (<1.030); Urine Urobilinogen Negative (Neg - 1+)
[2024-05-06 19:35] LABS: % Basophils 0.4 % (0-2); % Eosinophils 2.8 % (0-6); % Immature Granulocytes 0.3 % (0-0.5); % Lymphocytes 34.3 % (20.5-51.1); % Monocytes 9.7 % (1.7-9.3); % Neutrophils 52.5 % (42.2-75.2); Absolute Eosinophils 0.2 10^3/uL (0-0.7); Absolute Lymphocytes 2.3 10^3/uL (1.2-3.4); Absolute Monocytes 0.7 10^3/uL (0.1-0.6); Absolute Neutrophils 3.5 10^3/uL (1.4-6.5); Hematocrit 44.4 % (39.0-52.0); Hemoglobin 15.7 g/dL (13.0-18.0); Mean Corp Hgb Conc. 35.4 g/dL (33.0-37.0); Mean Corpuscular Hgb 31.7 pg (27.0-31.0); Mean Corpuscular Volume 89.5 fL (80.0-94.0); Mean Platelet Volume 8.6 fL (7.4-10.4); Nucleated Red Blood Cells % 0 % (-); Platelet Count 291 10^3/uL (130-400); Red Blood Cell Count 4.96 10^6/uL (4.70-6.10); Red Cell Dist. Width 12.1 % (11.5-14.5); White Blood Cell Count 6.7 10^3/uL (4.8-10.8)
[2024-05-06 19:56] LABS: ALT (SGPT) 33 U/L (0-50); AST (SGOT) 26 U/L (17-59); Albumin 4.3 g/dl (3.5-5.0); Alkaline Phosphatase 82 U/L (38-126); Blood Urea Nitrogen 16 mg/dl (9-20); Calcium 9.3 mg/dl (8.4-10.2); Carbon Dioxide 29 mmol/L (22-30); Chloride 101 mmol/L (98-107); Estimated Creatinine Clearance > 125 ml/min; Glucose 89 mg/dl (70-99); Potassium 4.3 mmol/L (3.5-5.1); Sodium 143 mmol/L (135-145); Total Bilirubin 0.3 mg/dl (0.2-1.3); Total Protein 7.2 g/dl (6.3-8.2); eGFR > 60.00
[2024-05-06 20:50] VITALS: BP 118/83
[2024-05-06 22:09] VITALS: BP 119/67
== END 2024-05-06 22:26 | disposition home or self-care (01) ==
LOC: EMR 18:38
PROVIDERS: Clinical Nurse Specialist Family Health; EMERGENCY PHYSICIAN Emergency Medicine
DX: R10.30 Lower abdominal pain, unspecified (principal); E78.00 Pure hypercholesterolemia, unspecified; K21.9 Gastro-esophageal reflux disease without esophagitis; K50.90 Crohn's disease, unspecified, without complications; I86.1 Scrotal varices; Z59.71 Insufficient health insurance coverage
CPT/HCPCS: 96374; 96375; 96361; 99285; 74177; 76870; 80053; 81003; 85025; 93976; Q9967